=== PATIENT | female | born 1975 | race African-American/Black ===

== ENCOUNTER 2016-05-16 08:39 | Emergency (ER) | payer SELFPAY ==
[~2016-05-16] VITALS: Ht 167.6 cm; Wt 80.0 kg
[2016-05-16] MEDS ORDERED: KETOROLAC 60MG/2ML VIAL IM ONE (09:15)
[2016-05-16] MEDS ORDERED: BACITRACIN ZINC OINT UDPKT TOP ONE (10:30)
[2016-05-16] MEDS ORDERED: LIDOCAINE HCL/EPINEPHRINE 1%-EPI 1:100,000 20 ML VIAL MC ONE (10:30)
[2016-05-16 12:33] VITALS: BP 139/76
== END 2016-05-16 12:34 | disposition home or self-care (01) ==
LOC: ER 08:51
DX: S41.112A Laceration without foreign body of left upper arm, initial encounter (principal); V89.2XXA Person injured in unspecified motor-vehicle accident, traffic, initial encounter; Y93.89 Activity, other specified; Y92.488 Other paved roadways as the place of occurrence of the external cause; Y99.8 Other external cause status; R51 Headache
CPT/HCPCS: 12002; 73060; 73090; 96372; 99284; J1885; J3490; Z7610

== ENCOUNTER 2016-05-18 08:22 | Emergency (ER) | payer SELFPAY ==
[~2016-05-18] VITALS: Ht 170.2 cm; Wt 141.0 kg
[2016-05-18 08:40] VITALS: BP 148/82
[2016-05-18] MEDS ORDERED: ACETAMINOPHEN 500MG TABLET PO ONE (09:45)
== END 2016-05-18 13:08 | disposition home or self-care (01) ==
LOC: ER 09:45
DX: R51 Headache (principal); Z48.01 Encounter for change or removal of surgical wound dressing; V89.2XXA Person injured in unspecified motor-vehicle accident, traffic, initial encounter; Y93.89 Activity, other specified; Y92.488 Other paved roadways as the place of occurrence of the external cause; Y99.8 Other external cause status
CPT/HCPCS: 70450; 81025; 99284; Z7610